=== PATIENT | female | born 1980 | race African-American/Black ===

== ENCOUNTER 2017-06-19 21:04 | Emergency (ER) | payer MEDICAID | END 2017-06-19 22:06 | disposition home or self-care (01) | LOC: D.ER 21:04 | DX: J01.90 Acute sinusitis, unspecified (principal) ==

== ENCOUNTER 2018-12-25 17:36 | Emergency (ER) | payer MEDICAID ==
[~2018-12-25] VITALS: Ht 175.3 cm; Wt 133.2 kg
[2018-12-25 17:38] VITALS: Ht 175.3 cm; Wt 133.2 kg
[2018-12-25] MEDS ORDERED: K-TAB10 MEQ PO (17:41)
[2018-12-25] MEDS ORDERED: FUROSEMIDE20 MG PO (17:41)
[2018-12-25] MEDS ORDERED: LASIX20 MG PO (17:41)
[2018-12-25 18:06] LABS: BASOPHILS 0.4 % (0-2); EOSINOPHILS 4.5 % (0-7); HEMOGLOBIN 11.8 g/dL (12-16); IMMATURE GRANULOCYTES 0.2 % (0-5); MCH 27.6 pg (26.0-34.0); MCHC 32.8 g/dL (31.0-37.0); MCV 84.1 fL (80.0-100.0); MEAN PLATELET VOLUME 11.1 fL (7.4-10.4); MONOCYTES 4.9 % (2-11); PLATELET COUNT 255 10x3/uL (130-400); RBC 4.28 10x6/uL (4.00-5.40); WBC 8.3 10x3/uL (4.8-10.8)
[2018-12-25 18:28] LABS: ALBUMIN 3.3 g/dL (3.4-5.0); ALKALINE PHOSPHATASE 94 U/L (46-116); ALT (SGPT) 20 U/L (10-68); BILIRUBIN - TOTAL 0.22 mg/dL (0.2-1.3); CALC OSMOLALITY 278 mosm/kg (275-300); CALCIUM 8.7 mg/dL (8.5-10.1); CARBON DIOXIDE 28.8 mmol/L (21.0-32.0); CHLORIDE - SERUM 103 mmol/L (98-107); CREATININE - SERUM 0.8 mg/dL (0.6-1.3); GLUCOSE 125 mg/dL (74-106); POTASSIUM - SERUM 3.9 mmol/L (3.5-5.1); PROTEIN - SERUM 7.1 g/dL (6.4-8.2); SODIUM 139 mmol/L (136-145); UREA NITROGEN 12 mg/dL (7-18); eGFR NON AFRICAN AMERICAN 85 mL/min (90-120)
[2018-12-25 18:35] LABS: CKMB 1.4 U/L (0.0-3.6); CREATINE KINASE 277 UL (21-215); PRO BNP 23 pg/mL (0-125); TROPONIN-I < 0.017 ng/mL (0.000-0.060)
[2018-12-25 19:08] LABS: APPEARANCE CLEAR (CLEAR); BILIRUBIN NEGATIVE (NEGATIVE); COLOR YELLOW (YELLOW); GLUCOSE NEGATIVE (NEGATIVE); KETONE NEGATIVE (NEGATIVE); NITRITE NEGATIVE (NEGATIVE); PROTEIN NEGATIVE (NEGATIVE); SPECIFIC GRAVITY 1.015 (1.005-1.020); UROBILINOGEN NORMAL (NORMAL)
[2018-12-25 19:09] LABS: WHITE CELLS - URINE OCC /hpf (0-5)
[2018-12-25 19:10] LABS: BACTERIA FEW /hpf (NONE SEEN); EPITHELIAL CELLS 0-5 /hpf (0-5); MUCUS <1+ /lpf (NONE SEEN); RED CELLS - URINE OCC /hpf (0-5)
[2018-12-25] MEDS ORDERED: MACROBID100 MG PO (19:37)
[2018-12-25 20:09] VITALS: BP 122/67
== END 2018-12-25 20:10 | disposition home or self-care (01) ==
LOC: D.ER 17:36
PROVIDERS: Family Medicine
DX: R60.0 Localized edema (principal); N39.0 Urinary tract infection, site not specified

== ENCOUNTER 2019-04-19 19:33 | Emergency (ER) | payer SELFPAY ==
[~2019-04-19] VITALS: Ht 175.3 cm; Wt 93.2 kg
[~2019-04-19 19:33] MED LIST: FUROSEMIDE20 MG PO; K-TAB10 MEQ PO; LASIX20 MG PO; MACROBID100 MG PO
[2019-04-19 19:39] VITALS: Ht 175.3 cm; Wt 93.2 kg
[2019-04-19 20:14] LABS: BASOPHILS 0.3 % (0-2); EOSINOPHILS 3.8 % (0-7); HEMATOCRIT 33.9 % (36.0-48.0); HEMOGLOBIN 11.1 g/dL (12-16); IMMATURE GRANULOCYTES 0.2 % (0-5); LYMPHOCYTES 30.9 % (15-50); MCH 27.8 pg (26.0-34.0); MCHC 32.7 g/dL (31.0-37.0); MEAN PLATELET VOLUME 11.3 fL (7.4-10.4); MONOCYTES 5.2 % (2-11); NEUTROPHILS 59.6 % (40-80); PLATELET COUNT 225 10x3/uL (130-400); RBC 3.99 10x6/uL (4.00-5.40); RDW 14.3 % (11.5-14.5); WBC 9.3 10x3/uL (4.8-10.8)
[2019-04-19 20:39] LABS: APTT 29.7 SECONDS (22.8-39.4); INR 0.98 (0.85-1.17); PROTIME 12.5 SECONDS (11.6-15.0)
[2019-04-19 20:41] LABS: ALBUMIN 3.1 g/dL (3.4-5.0); ALKALINE PHOSPHATASE 103 U/L (46-116); ALT (SGPT) 18 U/L (10-68); BILIRUBIN - TOTAL 0.16 mg/dL (0.2-1.3); CALC OSMOLALITY 290 mosm/kg (275-300); CALCIUM 8.2 mg/dL (8.5-10.1); CARBON DIOXIDE 27.4 mmol/L (21.0-32.0); CHLORIDE - SERUM 108 mmol/L (98-107); CREATININE - SERUM 0.8 mg/dL (0.6-1.3); GLUCOSE 113 mg/dL (74-106); POTASSIUM - SERUM 3.8 mmol/L (3.5-5.1); PROTEIN - SERUM 6.4 g/dL (6.4-8.2); SODIUM 145 mmol/L (136-145); UREA NITROGEN 14 mg/dL (7-18); eGFR NON AFRICAN AMERICAN 85 mL/min (90-120)
[2019-04-19 20:52] LABS: CREATINE KINASE 170 UL (21-215); MAGNESIUM - SERUM 1.6 mg/dL (1.8-2.4); TROPONIN-I < 0.017 ng/mL (0.000-0.060)
[2019-04-19] MEDS ORDERED: PROTONIX20 MG PO (21:17)
[2019-04-19 21:30] VITALS: BP 113/56
== END 2019-04-19 21:30 | disposition home or self-care (01) ==
LOC: D.ER 19:33
PROVIDERS: Family Medicine
DX: K21.9 Gastro-esophageal reflux disease without esophagitis (principal); R07.9 Chest pain, unspecified

== ENCOUNTER 2020-02-02 23:34 | Emergency (ER) | payer MEDICAID ==
[~2020-02-02] VITALS: Ht 175.3 cm; Wt 108.2 kg
[~2020-02-02 23:34] MED LIST changes: +PROTONIX20 MG PO
[2020-02-02 23:49] VITALS: Ht 175.3 cm; Wt 108.2 kg
[2020-02-03 00:27] LABS: BACTERIA NONE SEEN /hpf (NEGATIVE); EPITHELIAL CELLS 0-5 /hpf (0-5); RED CELLS - URINE 0-5 /hpf (0-5); WHITE CELLS - URINE 0-5 /hpf (NEGATIVE)
[2020-02-03 00:31] LABS: BASOPHILS 0.2 % (0-2); HEMATOCRIT 35.7 % (36.0-48.0); IMMATURE GRANULOCYTES 0.2 % (0-5); LYMPHOCYTES 31.9 % (15-50); MCH 26.4 pg (26.0-34.0); MCHC 30.8 g/dL (31.0-37.0); MCV 85.8 fL (80.0-100.0); MEAN PLATELET VOLUME 10.8 fL (7.4-10.4); MONOCYTES 6.9 % (2-11); NEUTROPHILS 59.8 % (40-80); PLATELET COUNT 260 10x3/uL (130-400); RBC 4.16 10x6/uL (4.00-5.40); RDW 14.8 % (11.5-14.5); WBC 10.5 10x3/uL (4.8-10.8)
[2020-02-03 00:37] LABS: CALC OSMOLALITY 272 mosm/kg (275-300); CALCIUM 8.4 mg/dL (8.5-10.1); CHLORIDE - SERUM 102 mmol/L (98-107); CREATININE - SERUM 0.7 mg/dL (0.6-1.3); GLUCOSE 124 mg/dL (74-106); POTASSIUM - SERUM 3.7 mmol/L (3.5-5.1); SODIUM 136 mmol/L (136-145); UREA NITROGEN 12 mg/dL (7-18); eGFR NON AFRICAN AMERICAN > 90 mL/min (90-120)
[2020-02-03] MEDS ORDERED: METHOCARBAMOL500 MG PO (01:15)
[2020-02-03 01:28] VITALS: BP 131/87
== END 2020-02-03 01:28 | disposition home or self-care (01) ==
LOC: D.ER 23:34
PROVIDERS: Emergency Medicine
DX: M79.18 Myalgia, other site (principal); I50.9 Heart failure, unspecified; J45.909 Unspecified asthma, uncomplicated; K21.9 Gastro-esophageal reflux disease without esophagitis; R10.9 Unspecified abdominal pain; R11.0 Nausea